=== PATIENT | male | born 1960 | race Caucasian/White ===

== ENCOUNTER 2022-02-24 08:14 | Day surgery (SDC) | payer OTHER, SELFPAY ==
[2022-01-15 11:32] VITALS: BMI 29.4
[2022-02-04 09:03] VITALS: BMI 29.2
--- NOTE | 2022-02-21 08:35 | P.PNAN_ITS ---
Anes - Initial Pre Proc Eval Procedure: Operation Date: 02/24/22 10:00 Proposed Procedures p Screening Colonoscopy - Franklin Deutsch MD Date/Time: 02/21/22 08:35 Surgeon: Franklin Deutsch MD Pre Op Diagnosis: Neoplasm Screening Patient Data Age: 61 Gender: M Height: 1.8 m Weight: 95 kg Allergies Allergy/AdvReac Type Severity Reaction Status Date / Time No Known Allergies Allergy Verified 02/24/22 08:53 Home Medications Medication Instructions Recorded Confirmed Type sodium,potassium,mag sulfates 17.5 See Rx Instructions PO .COMPLEX 01/15/22 02/24/22 Rx gram-3.13 gram-1.6 gram oral soln #354 mL (Suprep Bowel Prep Kit) aspirin 81 mg tablet 81 mg PO DAILY 02/04/22 02/04/22 History Patient hx anesthesia problems: none Family hx anesthesia problems: none Results Review: All pre-operative results and documents have been reviewed as part of the pre- operative evaluation. [facility] Surgical History Surgical History (Updated 02/21/22 @ 08:36 by Patrice Nayak DO) History of appendectomy History of cholecystectomy History of splenectomy Social History Social History Smoking status: Never smoker Alcohol intake: current Substance use: never Substance use type: does not use Living arrangements: with family Spiritual care concerns: No Anes - Eval Final PreProcedure Day of Procedure 02/21/22 08:35 Patient weight: overweight Heart: regular rate and rhythm Lungs: clear to auscultation Airway: Mallampati scale class II Neurological: alert and oriented Last oral intake: >/= 8 hours ASA classification: II Emergent: no Anesthetic plan: proceed Anesthesia type and monitoring: general GIVS and standard monitoring Results Review: All pre-operative results and documents have been reviewed as part of the pre- operative evaluation. Informed Consent: The patient's anesthetic plan and its attendant risks and benefits were discussed with the patient/family/POA. Questions were solicited and answers provided to the satisfaction of the patient/family/POA.
[2022-02-24 08:45] VITALS: BP 163/96; PULSE 100; RESP 20; TEMP 36.6; O2SAT 100
--- NOTE | 2022-02-24 09:04 | PM.HPGS ---
History of Present Illness History of Present Illness Consent: Risks, benefits, and alternatives have been discussed and questions answered. Patient agrees to proceed with procedure. Chief complaint: Neoplasm Screening Narrative: Adilson Mays is a 61 year old male Presents for screening colonoscopy. Patient's current weight appetite and bowel movements are normal. Patient denies abdominal pain. He has had no bleeding. Family history is noncontributory. Previous colonoscopy 10 years ago was unremarkable. Review of Systems Review of Systems: Review of systems noncontributory. [facility] Surgical History Surgical History (Updated 02/21/22 @ 08:36 by Patrice Nayak DO) History of appendectomy History of cholecystectomy History of splenectomy Social History Social History Smoking status: Never smoker Alcohol intake: current Substance use: never Substance use type: does not use Living arrangements: with family Spiritual care concerns: No Meds Home Medications and Allergies Home Medications Medication Instructions Recorded Confirmed Type sodium,potassium,mag sulfates 17.5 See Rx Instructions PO .COMPLEX 01/15/22 02/24/22 Rx gram-3.13 gram-1.6 gram oral soln #354 mL (Suprep Bowel Prep Kit) aspirin 81 mg tablet 81 mg PO DAILY 02/04/22 02/04/22 History Allergies Allergy/AdvReac Type Severity Reaction Status Date / Time No Known Allergies Allergy Verified 02/24/22 08:53 Vital Signs Vital Signs - 24 hr 02/24/22 08:45 Temperature 97.8 F Pulse Rate 100 Respiratory Rate 20 Blood Pressure 163/96 H Pulse Oximetry 100 Oxygen Delivery Room Air Exam Narrative: Physical exam reveals patient to be alert. Vital signs stable. HEENT exam is unremarkable. Patient is anicteric. Lungs are clear to auscultation and percussion. Heart is without murmur or extra sounds. Abdomen bowel sounds are present soft nontender with no organomegaly. Assessment and Plan Assessment and plan (1) Encounter for screening colonoscopy: Code(s): Z12.11 - Encounter for screening for malignant neoplasm of colon Status: Acute Assessment and Plan: Patient presents today for screening colonoscopy. He appears to be at average risk for colon polyps. Further recommendations may be given after endoscopy.
[2022-02-24] MEDS: LACTATED RINGERS 1,000 ML 150 ML IV CONT (09:12)
[2022-02-24 10:01] VITALS: BP 109/75; PULSE 85; RESP 18; O2SAT 99
[2022-02-24 10:11] VITALS: BP 130/87; PULSE 68; RESP 20; O2SAT 99
[2022-02-24 10:21] VITALS: BP 140/97; PULSE 77; RESP 18; O2SAT 100
--- NOTE | 2022-02-24 12:18 | WPDANESPN ---
Anes - Prog Note Post-Op Date/Time: 02/24/22 12:18 Cardiovascular status: normal Respiratory status: normal Airway patency: baseline Mental status: baseline Post-Op hydration status: normal Vital Signs: Last Vital Signs Temp 36.6 C 02/24/22 08:45 Pulse 77 02/24/22 10:21 Resp 18 02/24/22 10:21 BP 140/97 H 02/24/22 10:21 Pulse Ox 100 02/24/22 10:21 O2 Del Method Room Air 02/24/22 10:21 Pain Score (VAS): 0 I/O: Intake & Output 02/23/22 02/24/22 02/24/22 23:59 07:59 15:59 Intake Total 600 Balance 600 Post-procedural complaints: none Patient Feedback: Patient satisfied with anesthetic care. Other Findings: Patient vital signs back to baseline. Patient denies nausea and vomiting. Patient's pain under control. Patient OK for discharge.
== END 2022-02-24 10:46 | disposition home or self-care (01) ==
PROVIDERS: Visit Provider Internal Medicine Gastroenterology
PROC: 0DJD8ZZ Inspection of Lower Intestinal Tract, Via Natural or Artificial Opening Endoscopic (ICD-10-PCS; CPT 45378; principal; 2022-02-24 10:00)
DX: Z12.11 Encounter for screening for malignant neoplasm of colon (principal)
CPT/HCPCS: 45378